=== PATIENT | female | born 1940 | race Caucasian/White ===

== ENCOUNTER 2020-03-26 08:09 | Outpatient (REF) | payer MEDICARE, SELFPAY ==
[2020-03-26 11:29] LABS: MANUAL DIFF FLAG NO
[2020-03-26 11:40] LABS: Basophils Percent Auto 0.5 % (0-2); Eosinophils Absolute Auto 0.2 X10*3/uL (0.0-0.4); Eosinophils Percent Auto 3.9 % (0-4); Hematocrit 38.6 % (37-47); Hemoglobin 12.8 g/dl (12.0-16.0); Imm Gran Abs Auto 0.02 X10*3/uL (0.00-0.03); Imm Gran Pct Auto 0.3 % (0.0-0.4); Lymphocytes Absolute Auto 2.6 X10*3/uL (1.2-4.9); Mean Corpuscular HGB Conc 33.2 g/dl (31.0-35.0); Mean Corpuscular Hemoglobin 29.2 pg (27.0-33.0); Mean Corpuscular Volume 87.9 fL (80-98); Mean Platelet Volume 9.4 fL (9.4-12.3); Monocytes Absolute Auto 0.5 X10*3/uL (0.1-1.2); Monocytes Percent Auto 7.2 % (2-11); Neutrophils Absolute Auto 2.9 X10*3/uL (2.0-8.3); Neutrophils Percent Auto 47.1 % (45-73); Platelet Count 324 X10*3/uL (160-400); Red Blood Count 4.39 X10*6/uL (4.20-5.50); White Blood Count 6.2 X10*3/uL (4.8-10.8)
[2020-03-26 12:01] LABS: Glucose Urine UA NEG (NEG); Leukocyte Esterase Urine 1+ (NEG); Nitrite Urine NEG (NEG); Specific Gravity - Urine 1.015 (1.005-1.025); Urine Blood NEG (NEG); Urine Ketones NEG (NEG); Urine Protein NEG (NEG-TRACE)
[2020-03-26 12:04] LABS: Appearance Urine CLEAR; Color Urine YELLOW
[2020-03-26 12:12] LABS: TSH reflex Free T4 1.43 mIU/mL (0.32-4.0)
[2020-03-26 12:13] LABS: Alanine Aminotransferase 19 U/L (0-31); Albumin Level 4.1 g/dL (3.5-5.0); Alkaline Phosphatase 64 U/L (39-117); Anion Gap 11 (12-20); Aspartate Amino Transferase 21 U/L (5-31); Bilirubin Total 0.5 mg/dL (0.0-1.0); Blood Urea Nitrogen 27 mg/dL (9-16); Calcium 9.2 mg/dL (8.4-10.2); Carbon Dioxide 30 mmol/L (22-29); Chloride 100 mmol/L (96-108); Cholesterol 192 mg/dL; Estimated Glomerular Filt Rate 45; Glucose Fasting 90 mg/dL (60-99); HDL Cholesterol 54 mg/dL; LDL Cholesterol Calculated 121 mg/dl; Potassium 4.1 mmol/l (3.3-5.1); Sodium 137 mmol/L (135-145); Total Protein 7.4 g/dL (6.5-8.0); Triglycerides 86 mg/dL
[2020-03-26 12:18] LABS: Squamous Epithelial Cell Urine 1+ /LPF
== END 2020-03-26 08:10 | disposition home or self-care (01) ==
LOC: HO.HMGCLDS 08:09
PROVIDERS: PCP Internal Medicine; Visit Provider Internal Medicine
DX: E78.00 Pure hypercholesterolemia, unspecified (principal); I10 Essential (primary) hypertension; E66.3 Overweight
CPT/HCPCS: 36415; 80053; 80061; 81001; 81003; 84443; 85025; 87086

== ENCOUNTER 2021-06-03 14:49 | Outpatient (REF) | payer MEDICARE, SELFPAY ==
[2021-06-03 15:02] LABS: MANUAL DIFF FLAG NO
[2021-06-03 15:16] LABS: Basophils Percent Auto 0.4 % (0-2); Eosinophils Absolute Auto 0.1 X10*3/uL (0.0-0.4); Eosinophils Percent Auto 1.5 % (0-4); Hematocrit 38.4 % (37.0-47.0); Hemoglobin 12.6 g/dl (12.0-16.0); Imm Gran Abs Auto 0.02 X10*3/uL (0.00-0.03); Imm Gran Pct Auto 0.3 % (0.0-0.4); Lymphocytes Absolute Auto 2.2 X10*3/uL (1.2-4.9); Lymphocytes Percent Auto 29.5 % (20-40); Mean Corpuscular HGB Conc 32.8 g/dl (31.0-35.0); Mean Corpuscular Hemoglobin 29.1 pg (27.0-33.0); Mean Corpuscular Volume 88.7 fL (80.0-98.0); Mean Platelet Volume 9.4 fL (9.4-12.3); Monocytes Absolute Auto 0.5 X10*3/uL (0.1-1.2); Monocytes Percent Auto 6.4 % (2-11); Neutrophils Absolute Auto 4.6 x10*3/uL (2.0-8.3); Neutrophils Percent Auto 61.9 % (45-73); Platelet Count 302 X10*3/uL (160-400); Red Blood Count 4.33 X10*6/uL (4.20-5.50); Red Cell Distribution Width 14.2 % (11.0-16.0); White Blood Count 7.5 X10*3/uL (4.8-10.8)
[2021-06-03 15:52] LABS: T4 Thyroxine 8.2 ug/dL (4.5-12.0); Thyroid Stimulating Hormone 1.02 uIU/mL (0.32-4.0)
[2021-06-03 16:09] LABS: Folate > 20.0 ng/mL (> or = 4.0); Vitamin B12 439 pg/mL (200-900)
== END 2021-06-03 14:50 | disposition home or self-care (01) ==
LOC: HO.LAB 14:49
PROVIDERS: PCP Internal Medicine; Visit Provider Psychiatry & Neurology Neurology
DX: G31.84 Mild cognitive impairment of uncertain or unknown etiology (principal)
CPT/HCPCS: 36415; 82607; 82746; 84436; 84443; 85025

== ENCOUNTER 2021-07-15 11:00 | Outpatient (REF) | payer MEDICARE, SELFPAY ==
--- NOTE | ~2021-07-15 | CT_ITS ---
EXAMINATION: CT HEAD WITHOUT CONTRAST CLINICAL INFORMATION: Mild cognitive impairment COMPARISON: None TECHNIQUE: Contiguous axial imaging was performed from the skull base to vertex without intravenous administration of contrast. This CT examination was performed using dose optimization techniques as appropriate, variously including the following: *Automated exposure control *Adjustment of mA and/or kV according to patient size (this includes techniques or standardized protocols for targeted exams where dose is matched to indication/reason for exam; i.e. extremities or head) *Use of iterative reconstruction technique DLP: 650 mGy-cm FINDINGS: There is no evidence of an extra-axial collection. There is no evidence of intra-axial or extra-axial hemorrhage. The ventricles and extra-axial CSF spaces are prominent suggestive of generalized atrophy. There is nonspecific periventricular white matter disease. There are small calcifications in the left periventricular white matter of the frontal lobe adjacent to the anterior horn of the left lateral ventricle. No mass, mass effect or infarct is seen. Review of bone windows is normal. Visualized paranasal sinuses, mastoid air cells and middle ears are clear. CT/CT head/brain wo con IMPRESSION: Mild generalized atrophy and nonspecific periventricular white matter disease. Small periventricular white matter calcifications in the left frontal lobe adjacent to the anterior horn of the left lateral ventricle.
== END 2021-07-15 11:01 | disposition home or self-care (01) ==
LOC: HO.CT 11:00
PROVIDERS: PCP Internal Medicine; Visit Provider Psychiatry & Neurology Neurology
DX: G31.84 Mild cognitive impairment of uncertain or unknown etiology (principal)
CPT/HCPCS: 70450

== ENCOUNTER 2021-09-20 08:24 | Outpatient (REF) | payer MEDICARE, SELFPAY ==
--- NOTE | ~2021-09-20 | XR_ITS ---
EXAMINATION: XR KNEE, LEFT CLINICAL INFORMATION: Pain COMPARISON: None TECHNIQUE: Four views of the left knee. FINDINGS: No fracture or dislocation. Tiny suprapatellar joint effusion. Severe narrowing of the medial joint space height. Small tricompartmental marginal osteophytes. No focal soft tissue swelling of the anterior knee. XR/XR knee LT 4V IMPRESSION: Moderate degenerative changes involving the medial compartment of the knee.
[2021-09-20 11:13] LABS: Appearance Urine CLEAR; Glucose Urine UA NEG (NEG); Leukocyte Esterase Urine NEG (NEG); Nitrite Urine NEG (NEG); Specific Gravity - Urine <= 1.005 (1.005-1.025); Urine Blood NEG (NEG); Urine Ketones NEG (NEG); Urine Protein NEG (NEG-TRACE)
[2021-09-20 11:15] LABS: MANUAL DIFF FLAG NO
[2021-09-20 11:25] LABS: Basophils Percent Auto 0.6 % (0-2); Eosinophils Absolute Auto 0.1 X10*3/uL (0.0-0.4); Eosinophils Percent Auto 2.2 % (0-4); Hematocrit 38.3 % (37.0-47.0); Hemoglobin 12.6 g/dl (12.0-16.0); Imm Gran Abs Auto 0.01 X10*3/uL (0.00-0.03); Imm Gran Pct Auto 0.2 % (0.0-0.4); Lymphocytes Absolute Auto 2.1 X10*3/uL (1.2-4.9); Lymphocytes Percent Auto 42.1 % (20-40); Mean Corpuscular HGB Conc 32.9 g/dl (31.0-35.0); Mean Corpuscular Volume 88.2 fL (80.0-98.0); Mean Platelet Volume 9.7 fL (9.4-12.3); Monocytes Absolute Auto 0.4 X10*3/uL (0.1-1.2); Monocytes Percent Auto 7.7 % (2-11); Neutrophils Absolute Auto 2.4 x10*3/uL (2.0-8.3); Neutrophils Percent Auto 47.2 % (45-73); Platelet Count 298 X10*3/uL (160-400); Red Blood Count 4.34 X10*6/uL (4.20-5.50); Red Cell Distribution Width 13.7 % (11.0-16.0)
[2021-09-20 11:45] LABS: Alanine Aminotransferase 13 U/L (0-31); Albumin Level 3.9 g/dL (3.5-5.0); Alkaline Phosphatase 66 U/L (39-117); Anion Gap 11 (12-20); Aspartate Amino Transferase 16 U/L (5-31); Bilirubin Total 0.4 mg/dL (0.0-1.0); Blood Urea Nitrogen 22 mg/dL (9-16); Calcium 9.8 mg/dL (8.4-10.2); Carbon Dioxide 29 mmol/L (22-29); Chloride 103 mmol/L (96-108); Cholesterol 210 mg/dL; Estimated Glomerular Filt Rate 50; Glucose Fasting 98 mg/dL (60-99); HDL Cholesterol 53 mg/dL; LDL Cholesterol Calculated 141 mg/dl; Sodium 139 mmol/L (135-145); Total Protein 7.4 g/dL (6.5-8.0); Triglycerides 82 mg/dL
[2021-09-20 11:52] LABS: TSH reflex Free T4 1.21 uIU/mL (0.32-4.0); Vitamin D 25-OH Total 52.5 ng/mL (>30)
[2021-09-20 12:06] LABS: Folate 11.8 ng/mL (> or = 4.0); Vitamin B12 261 pg/mL (200-900)
== END 2021-09-20 08:25 | disposition home or self-care (01) ==
LOC: HO.HMGCLDS 08:24
PROVIDERS: Visit Provider Internal Medicine
DX: M25.562 Pain in left knee (principal); E78.00 Pure hypercholesterolemia, unspecified; E55.9 Vitamin D deficiency, unspecified; E53.8 Deficiency of other specified B group vitamins; I10 Essential (primary) hypertension
CPT/HCPCS: 36415; 73564; 80053; 80061; 81003; 82306; 82607; 82746; 84443; 85025

== ENCOUNTER 2021-10-28 07:29 | Outpatient (REF) | payer MEDICARE, SELFPAY ==
--- NOTE | ~2021-10-28 | XR_ITS ---
EXAMINATION: XR KNEE AP STANDING CLINICAL INFORMATION: Bilateral knee pain. COMPARISON: None TECHNIQUE: AP bilateral standing view of the knees was obtained. FINDINGS: There is loss, severe medial and moderate lateral compartment joint space both knees. There is no periarticular spurring or bony erosive changes. The soft tissues are normal. No acute fracture or dislocation seen. XR/XR knee standing BI IMPRESSION: Severe medial and moderate lateral compartment degenerative arthritic changes both knees.
== END 2021-10-28 07:30 | disposition home or self-care (01) ==
LOC: HO.HOSX 07:29
PROVIDERS: Visit Provider Physician Assistant
DX: M17.12 Unilateral primary osteoarthritis, left knee (principal)
CPT/HCPCS: 20610; 73565; 99202; J1040

== ENCOUNTER 2021-11-03 15:09 | Emergency (ER) | payer MEDICARE, SELFPAY ==
[2021-11-03 15:26] VITALS: BP 101/44; BP 114/58; PULSE 108; PULSE 98; RESP 18; TEMP 36.5; O2SAT 98; BMI 28.3
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
[2021-11-03 16:34] VITALS: BP 115/63; PULSE 86; RESP 16; O2SAT 94
== END 2021-11-03 16:35 | disposition home or self-care (01) ==
PROVIDERS: Emergency Provider Emergency Medicine; PCP Internal Medicine
DX: Z04.1 Encounter for examination and observation following transport accident (principal); R41.3 Other amnesia
CPT/HCPCS: 99282; 99284

== ENCOUNTER → 2022-04-07 08:27 | Outpatient (BNVA) | payer MEDICARE, SELFPAY | PROVIDERS: PCP Internal Medicine; Visit Provider Physician Assistant | DX: M17.12 Unilateral primary osteoarthritis, left knee (principal); M17.11 Unilateral primary osteoarthritis, right knee | CPT/HCPCS: 20610; 99212; J1040 ==

== ENCOUNTER 2022-09-10 09:05 | Outpatient (REF) | payer MEDICARE, SELFPAY ==
[2022-09-10 11:14] LABS: MANUAL DIFF FLAG NO
[2022-09-10 11:33] LABS: Basophils Percent Auto 0.7 % (0-2); Eosinophils Absolute Auto 0.2 X10*3/uL (0.0-0.4); Hematocrit 36.7 % (37.0-47.0); Hemoglobin 11.9 g/dl (12.0-16.0); Imm Gran Abs Auto 0.01 X10*3/uL (0.00-0.03); Imm Gran Pct Auto 0.2 % (0.0-0.4); Lymphocytes Absolute Auto 2.1 X10*3/uL (1.2-4.9); Lymphocytes Percent Auto 36.9 % (20-40); Mean Corpuscular HGB Conc 32.4 g/dl (31.0-35.0); Mean Corpuscular Hemoglobin 28.7 pg (27.0-33.0); Mean Corpuscular Volume 88.6 fL (80.0-98.0); Mean Platelet Volume 9.7 fL (9.4-12.3); Monocytes Absolute Auto 0.4 X10*3/uL (0.1-1.2); Monocytes Percent Auto 7.5 % (2-11); Neutrophils Absolute Auto 2.9 x10*3/uL (2.0-8.3); Neutrophils Percent Auto 51.7 % (45-73); Platelet Count 262 X10*3/uL (160-400); Red Blood Count 4.14 X10*6/uL (4.20-5.50); White Blood Count 5.6 X10*3/uL (4.8-10.8)
[2022-09-10 12:08] LABS: Alanine Aminotransferase 13 U/L (0-31); Albumin Level 3.9 g/dL (3.5-5.0); Alkaline Phosphatase 64 U/L (39-117); Anion Gap 10 (12-20); Aspartate Amino Transferase 17 U/L (5-31); Bilirubin Total 0.6 mg/dL (0.0-1.0); Blood Urea Nitrogen 21 mg/dL (9-16); Calcium 9.7 mg/dL (8.4-10.2); Carbon Dioxide 29 mmol/L (22-29); Chloride 105 mmol/L (96-108); Cholesterol 205 mg/dL; Estimated Glomerular Filt Rate 59; Glucose Fasting 88 mg/dL (60-99); HDL Cholesterol 53 mg/dL; LDL Cholesterol Calculated 138 mg/dl; Potassium 4.1 mmol/L (3.3-5.1); Sodium 140 mmol/L (135-145); Total Protein 7.1 g/dL (6.5-8.0); Triglycerides 70 mg/dL
[2022-09-10 12:42] LABS: Folate 15.8 ng/mL (> or = 4.0); TSH reflex Free T4 1.69 uIU/mL (0.32-4.0); Vitamin B12 366 pg/mL (200-900); Vitamin D 25-OH Total 45.9 ng/mL (>30)
== END 2022-09-10 09:06 | disposition home or self-care (01) ==
LOC: HO.HMGCLDS 09:05
PROVIDERS: PCP Internal Medicine; Visit Provider Internal Medicine
DX: E78.00 Pure hypercholesterolemia, unspecified (principal); E55.9 Vitamin D deficiency, unspecified; E53.8 Deficiency of other specified B group vitamins; I10 Essential (primary) hypertension
CPT/HCPCS: 36415; 80053; 80061; 82306; 82607; 82746; 84443; 85025

== ENCOUNTER 2022-09-17 14:51 | Outpatient (REF) | payer MEDICARE, SELFPAY ==
[2022-09-17 17:00] LABS: Appearance Urine Clear; Color Urine Yellow; Glucose Urine UA Negative (Negative); Leukocyte Esterase Urine Small (1+) (Negative); Nitrite Urine Negative (Negative); UMIC TRIGGER UACC YES; Urine Blood Negative (Negative); Urine Ketones Negative (Negative); Urine Protein Negative (Neg-Trace)
[2022-09-17 17:16] LABS: Bacteria Urine None Seen (None Seen); Hyaline Casts Urine 0-2 /LPF (0-2); Squamous Epithelial Cell Urine 0-2 /HPF (0-2); UACC Culture Trigger YES; WBC Urine 0-5 /HPF (0-5)
[2022-09-17 17:18] LABS: RBC Urine 0-2 /HPF (0-2)
== END 2022-09-17 14:52 | disposition home or self-care (01) ==
LOC: HO.HMGCLNP 14:51
PROVIDERS: PCP Internal Medicine; Visit Provider Internal Medicine
DX: R30.0 Dysuria (principal)
CPT/HCPCS: 81001; 87086

== ENCOUNTER 2023-01-07 09:12 | Outpatient (REF) | payer MEDICARE, SELFPAY ==
[2023-01-07 11:43] LABS: MANUAL DIFF FLAG NO
[2023-01-07 11:45] LABS: Appearance Urine Clear; Color Urine Yellow; Glucose Urine UA Negative (Negative); Leukocyte Esterase Urine Moderate (2+) (Negative); Nitrite Urine Negative (Negative); PH 5.5 (5.0-9.0); Specific Gravity - Urine 1.025 (1.005-1.025); UMIC TRIGGER UACC YES; Urine Blood Small (1+) (Negative); Urine Ketones Negative (Negative); Urine Protein Negative (Neg-Trace)
[2023-01-07 11:52] LABS: Basophils Percent Auto 0.5 % (0-2); Eosinophils Absolute Auto 0.2 X10*3/uL (0.0-0.4); Eosinophils Percent Auto 2.6 % (0-4); Hematocrit 38.6 % (37.0-47.0); Hemoglobin 12.6 g/dl (12.0-16.0); Imm Gran Abs Auto 0.01 X10*3/uL (0.00-0.03); Imm Gran Pct Auto 0.2 % (0.0-0.4); Lymphocytes Absolute Auto 2.2 X10*3/uL (1.2-4.9); Lymphocytes Percent Auto 36.6 % (20-40); Mean Corpuscular HGB Conc 32.6 g/dl (31.0-35.0); Mean Corpuscular Hemoglobin 28.3 pg (27.0-33.0); Mean Corpuscular Volume 86.7 fL (80.0-98.0); Mean Platelet Volume 10.8 fL (9.4-12.3); Monocytes Absolute Auto 0.4 X10*3/uL (0.1-1.2); Monocytes Percent Auto 6.9 % (2-11); Neutrophils Absolute Auto 3.3 x10*3/uL (2.0-8.3); Neutrophils Percent Auto 53.2 % (45-73); Platelet Count 235 X10*3/uL (160-400); Red Blood Count 4.45 X10*6/uL (4.20-5.50); Red Cell Distribution Width 14.2 % (11.0-16.0); White Blood Count 6.1 X10*3/uL (4.8-10.8)
[2023-01-07 12:08] LABS: Bacteria Urine Trace (None Seen); Hyaline Casts Urine 0-2 /LPF (0-2); RBC Urine 0-2 /HPF (0-2); UACC Culture Trigger YES
[2023-01-07 12:16] LABS: Alanine Aminotransferase 13 U/L (0-31); Albumin Level 4.1 g/dL (3.5-5.0); Alkaline Phosphatase 64 U/L (39-117); Anion Gap 11 (12-20); Aspartate Amino Transferase 19 U/L (5-31); Bilirubin Total 0.5 mg/dL (0.0-1.0); Blood Urea Nitrogen 16 mg/dL (9-16); Calcium 10.1 mg/dL (8.4-10.2); Carbon Dioxide 28 mmol/L (22-29); Chloride 106 mmol/L (96-108); Cholesterol 196 mg/dL (<200); Estimated Glomerular Filt Rate > 60; Glucose Fasting 96 mg/dL (60-99); HDL Cholesterol 57 mg/dL (>40); LDL Cholesterol Calculated 127 mg/dL (<100); Potassium 4.1 mmol/L (3.3-5.1); Sodium 141 mmol/L (135-145); Total Protein 7.7 g/dL (6.5-8.0); Triglycerides 60 mg/dL (<150)
[2023-01-07 12:24] LABS: TSH reflex Free T4 1.69 uIU/mL (0.32-4.0)
[2023-01-07 12:44] LABS: Folate 12.6 ng/mL (> or = 4.0); Vitamin B12 592 pg/mL (200-900)
== END 2023-01-07 09:13 | disposition home or self-care (01) ==
LOC: HO.HMGCLDS 09:12
PROVIDERS: PCP Internal Medicine; Visit Provider Internal Medicine
DX: E55.9 Vitamin D deficiency, unspecified (principal); E53.8 Deficiency of other specified B group vitamins; I10 Essential (primary) hypertension; E78.00 Pure hypercholesterolemia, unspecified; R30.0 Dysuria
CPT/HCPCS: 36415; 80053; 80061; 81001; 82306; 82607; 82746; 84443; 85025; 87086

== ENCOUNTER 2023-01-16 08:37 | Outpatient (AMB) | payer MEDICARE, SELFPAY ==
[2023-01-16 08:43] VITALS: BP 116/80; PULSE 101; O2SAT 98; BMI 24.0
--- NOTE | 2023-01-16 08:43 | MHC.PC.OV ---
Vital Signs 01/16/23 08:43 Height 5 ft 2 in Weight 131 lb BMI 24.0 BP 116/80 Blood Pressure Location Lt brachial Position Sitting Pulse 101 H Pulse Source Pulse Oximeter Pulse Oximetry (%) 98 Oxygen Delivery Method Room Air Intake Visit Reasons: Annual Physical Community Health Counselor Required: No Accompanied by: Son Allergies No Known Allergies Allergy (Verified 01/16/23 09:13) Medication List - Last Reconciled 01/16/23 by Diaz Flores MD No Known Home Meds Tobacco use date assessed: 01/16/23 Fall risk assessment: No Falls in past year Last assessed Fall Risk: 01/16/23 Dental Screening Dental Screen Date: 01/16/23 Did you have a dental visit in the last 12 months?: Yes Did you have a dental problem in the last 6 months where you did not have access to dental care?: No Was dental information given to patient?: Patient has dentist HPI Annual Physical HPI Details Patient comes in today for her annual physical examination States that she feels okay although she appears to still has some baseline confusion, which her son states has been about the same and is mostly unchanged - states that she normally has some good days and bad days Patient denies any headaches or dizziness and feels that she is doing well overall She denies any chest pains, no SOB No nausea/vomiting, no abdominal pain No change in bowel habits noted She denies any acute urinary symptoms States that she does have a rash on her left arm at the antecubital fossa area that her son noticed a couple of days ago Patient states that the rash is slightly itchy but does not hurt and states that she has no idea how the rash got there Her son adds that patient has been complaining of her knees hurting and feeling stiff often over the past few weeks, especially when she is trying to get up from sitting in a chair She has consistently declined referrals for her to get a screening colonoscopy in the past and at her current age, she no longer needs to continue with routine screenings for colon, breast and cervical cancer She had her follow up labs done last week - to discuss her results [facility] Medical History Primary osteoarthritis of knees, 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 Memory impairment Overweight (BMI 25.0-29.9) Osteoarthritis of right knee Pure hypercholesterolemia Benign essential hypertension Surgical History No pertinent past surgical history Family History Unknown Family history non-contributory Social History Housing: House Alcohol intake: current Alcohol intake frequency: a few times a month Alcohol type: wine Patient Tobacco Use Status: Never used Tobacco e-Cigarette/Vaping Use: Never Used Second Hand Smoke Exposure: No service: No Current occupational status: retired Cognitive needs: No Hearing needs: No Vision needs: No Questionnaire PHQ-9 Over the last 2 weeks, how often have you been bothered by any of the following problems? 1. Little interest or pleasure in doing things: not at all 2. Feeling down, depressed, or hopeless: not at all 3. Trouble falling or staying asleep, or sleeping too much: nearly every day 4. Feeling tired or having little energy: several days 5. Poor appetite or overeating: not at all 6. Feeling bad about yourself - or that you are a failure or have let yourself or your family down: not at all 7. Trouble concentrating on things, such as reading the newspaper or watching television: not at all 8. Moving or speaking so slowly that other people could have noticed. Or the opposite - being so fidgety or restless that you have been moving around a lot more than usual: more than half the days 9. Thoughts that you would be better off or of hurting yourself in some way: not at all Total score: 6 Depression Screening Interpretation: Positive Depression Screening Follow-up: Existing condition and Declines treatment 06351 - PHQ-9 Billing: Yes Source: Developed by Drs. Guido Huston, Janneth Richardson, Librado Graf and colleagues, with an educational jayna from [employer]. Thrive Questionnaire Date Thrive assessed: 01/16/23 I am a: Patient What is your living situation today?: I have a steady place to live Within the past 12 months, did the food you bought not last and you didn't have the money to get more?: Never true Within the past 12 months, did you worry whether your food would run out before you got money to buy more?: Never true Do you have trouble paying for medicines?: No Do you have trouble getting transportation to medical appointments?: No Do you have trouble paying your heating and electricity bill?: No Do you have trouble taking care of your child, family member or friend?: No Do you have trouble with day-to-day activities such as bathing, preparing meals, shopping, managing finances, etc.?: No Are you currently unemployed and looking for a job?: No Are you interested in more education?: No Currently or been in a relationship where the following occur: no concerns reported AUDIT C Alcohol Use Questionnaire (AUDIT-C) 1. How often do you have a drink containing alcohol?: Never 2. How many drinks containing alcohol do you have on a typical day when you are drinking?: 1 or 2 3. How often do you have six or more drinks on one occasion?: Never Total Score: 0 Score Reviewed/Action Taken: Yes DAMARI-7 AMB Questionnaire DAMARI-7 Date DAMARI - 7 assessed: 01/16/23 Feeling nervous, anxious, or on edge: 0 = Not at all Not being able to stop or control worryin = Several days Worrying too much about different things: 1 = Several days Trouble relaxin = Several days Being so restless that it is hard to sit still: 1 = Several days Becoming easily annoyed or irritable: 1 = Several days Feeling afraid as if something awful might happen: 1 = Several days Total DAMARI-7 score (0-4 normal; 5-9 mild; 10-14 moderate; 15-21 severe): 6 Source: Developed by Drs. Guido Huston, Janneth Richardson, Librado Graf and colleagues, with an educational jayna from [employer]. Review of Systems Const Denies chills, Denies fatigue, Denies fever(s), Denies headache(s) and Denies malaise Eyes Denies blurry vision, Denies irritation and Denies itchy eyes ENT Denies dysphagia, Denies dizziness, Denies otalgia, Denies headache(s), Denies neck pain, Denies odynophagia and Denies sore throat Card Denies chest pain, Denies rapid heart rate, Denies irregular heart rhythm, Denies palpitations and Denies dyspnea Resp Denies cough, Denies dyspnea and Denies wheezing GI Denies abdominal pain, Denies constipation, Denies dysphagia, Denies heartburn, Denies diarrhea, Denies nausea, Denies odynophagia and Denies vomiting Denies hematuria, Denies urinary frequency, Denies dysuria, Denies urinary incontinence and Denies urinary urgency Musc Denies back pain, Reports arthralgias (recurrent, in both knees often lately), Denies joint swelling, Denies muscle weakness, Denies neck pain and Reports stiffness (in both knees, on and off) Skin/Breast Denies breast pain, Denies breast mass, Denies change in pigmentation, Denies lesions, Reports rash (over the left antecubital fossa area on the left arm) and Denies unusual bruising Neuro Reports confusion (off and on, per son - states that this is her baseline level nowadays), Denies dizziness, Denies headache(s), Reports memory loss (per son) and Denies paresthesias Psych Denies anxiety, Reports confusion (off and on, per son - states that this is her baseline level nowadays), Denies depression and Reports memory loss (per son) Endo Denies fatigue and Denies palpitations Jay/Lymph Denies easy bruising Aller/Immun Denies itchy eyes and Denies wheezing Physical exam (Primary Care) Vital Signs: Last Vital Signs Pulse 101 H 01/16/23 08:43 BP 116/80 01/16/23 08:43 Pulse Ox 98 01/16/23 08:43 Oxygen Delivery Method Room Air 01/16/23 08:43 BMI result Body Mass Index 24.0 Tobacco/Smoking Status: Tobacco use Status Tobacco use date assessed 01/16/23 01/16/23 08:49 Patient Tobacco Use Status Never used Tobacco 01/16/23 08:49 e-Cigarette/Vaping Use Never Used 01/16/23 08:49 PHQ-9: PHQ-9 Score PHQ-9: Total score 6 01/16/23 08:49 Depression Screening Interpretation: Positive Depression Screening Follow-up: Existing condition and Declines treatment Thrive Assessment: Date of Thrive Assessment Date Thrive assessed 01/16/23 01/16/23 08:49 Currently or been in a relationship where the following occur: no concerns reported Const General: no acute distress and confusion (off and on, per son - states that this is her baseline level nowadays) Orientation/consciousness: confusion (off and on, per son - states that this is her baseline level nowadays) [facility] [place] Head: Yes normocephalic and Yes atraumatic Ears: TM's normal bilaterally and EAC's normal General nose exam: No nasal discharge present Face and sinus: Yes normal facial exam and Yes sinuses nontender Teeth and gingiva: dentition normal Throat: Yes posterior oropharynx normal and Yes tonsils normal (no TP congestion) Eyes Eyelids: Yes eyelids normal Conjunctivae: conjunctivae normal Pupils: Equal, round and reactive pupils present EOM: EOMs intact bilaterally Neck Neck: Yes no lymphadenopathy and Yes supple Thyroid: Thyroid normal Resp Auscultation: clear to auscultation bilaterally, no rales and no wheezes Cardio Rate: regular rate Rhythm: regular rhythm Heart sounds: Murmur heart sound present systolic soft, II/ and at the left sternal border GI Palpation (GI): Soft to palpation, nontender and No hepatosplenomegaly present Auscultation: normal bowel sounds General: Yes no CVA tenderness Back/Spine/Pelvis Back: no CVA tenderness Thoracic/Lumbar Spine: thoracic and lumbar spine normal to inspection Skin Lesions: no lesions Rashes: no rashes Neuro General: confusion (off and on, per son - states that this is her baseline level nowadays) Cranial nerves: Yes Equal, round and reactive pupils present Cognition (Neuro): normal cognition Gait exam (Neuro): Normal gait present Extrem General: Yes no clubbing, cyanosis or edema Right lower extremity: knee Details: tenderness (anterolaterally) and normal ROM; no swelling Left lower extremity: knee Details: tenderness (minimal, over the anterolateral aspect of the left knee) and normal ROM; no swelling Assessment and Plan Assessment & Plan (1) Annual physical exam: Code(s): Z00.00 - Encounter for general adult medical examination without abnormal findings Plan: Results of her labs done last week reviewed and discussed with patient and her son She has declined referrals for a screening colonoscopy in the past and has never had one done At her current age, she also no longer needs to continue with routine breast and cervical cancer screening She has also declined to get flu vaccinations in the past and continues to decline getting a flu shot or other vaccinations, including pneumonia, shingles and COVID vaccines (2) Benign essential hypertension: Code(s): I10 - Essential (primary) hypertension Plan: Reinforced low sodium diet - goal is systolic BP of at least 140 to 150 mm or less Patient used to take Lisinopril-HCT 20-12.5 mg QD for her blood pressure but self-discontinued taking her medication at some point over the past few years as she did not feel that she needs it Her BP was fairly well-controlled at her last visit and appears controlled again at today's visit and we will continue to hold off on starting her back on any Rx for her blood pressure at this time (3) Pure hypercholesterolemia: Code(s): E78.00 - Pure hypercholesterolemia, unspecified Plan: Have advised patient and her son that her cholesterol levels also appear to have improved further from her previous numbers on her labs done last week and are now in the normal range Reinforced low cholesterol diet Patient used to take OTC Red Yeast Rice supplements regularly as she has steadfastly declined offer to start her on cholesterol-lowering Rx in the past but has not been taking it lately and it appears that her cholesterol levels are now under control with just diet modification alone Will recheck her labs and fasting lipids in 6 months for follow up (4) Mild cognitive impairment with memory loss: Code(s): G31.84 - Mild cognitive impairment of uncertain or unknown etiology Plan: Patient is again encouraged to continue to stay active physically, mentally and socially; advised to exercise regularly, eat healthy and to get plenty of sleep and rest at night Work ups done in the past, including a head CT, EEG and labs have all came back negative Was seen by Dr. Reyes last year but patient does not want to go back to him as she felt that he did not really do anything - have advised that he did what he had to and needed to and perhaps just did not explain things well enough for her She was also started on Donepezil 5 mg QD but patient stopped taking it as she did not feel that it was helping and does not want to take it despite our previous attempts to convince her to do so Patient agreed to go to [facility] for a second opinion but as we have not received any reports from [facility], are not sure if she ever was seen by them (5) Primary osteoarthritis of knees, bilateral: Code(s): M17.0 - Bilateral primary osteoarthritis of knee Plan: She and her son are reminded that x-rays of her knees done last year revealed (+) severe tricompartmental arthritis in both knees Recalls experiencing (+) significant pain relief in her knees for a few months after receiving a cortisone injection into her knees back in October 2021 Advised that she can follow up with orthopedics as needed for her knees but in the meantime, can take some OTC Tylenol PRN for pain (6) Rash: Code(s): R21 - Rash and other nonspecific skin eruption Plan: Is advised that the rash on her left arm appears to be some form of eczema Will start her for now on Triamcinolone 0.5% cream to apply to the rash on her left arm TID PRN Plan Follow up in 6 months (August 2023) Orders: Orders Lipid Panel 6 Months E78.00 - Pure hypercholesterolemia, unspecified Complete Blood Count Auto Diff 6 Months I10 - Essential (primary) hypertension Vitamin B12 and Folate 6 Months E53.8 - Deficiency of other specified B group vitamins Comprehensive [place]. Panel Fast 6 Months E78.00 - Pure hypercholesterolemia, unspecified UA CC w/rflx Micro + Cult 6 Months R30.0 - Dysuria Medications: New triamcinolone acetonide 0.5% 1 appl topical TID PRN 30 grams 0RF rash Coding Level of Care Code Est Pt Prev Care >65y(63211) Diagnoses Annual physical exam Z00.00 Benign essential hypertension I10 Pure hypercholesterolemia E78.00 Mild cognitive impairment with memory loss G31.84 Primary osteoarthritis of knees, bilateral M17.0 Rash R21
== END 2023-01-16 09:24 | disposition home or self-care (01) ==
PROVIDERS: PCP Internal Medicine; Visit Provider Internal Medicine
DX: Z00.00 Encounter for general adult medical examination without abnormal findings (principal); I10 Essential (primary) hypertension; E78.00 Pure hypercholesterolemia, unspecified; G31.84 Mild cognitive impairment of uncertain or unknown etiology; M17.0 Bilateral primary osteoarthritis of knee; R21 Rash and other nonspecific skin eruption
CPT/HCPCS: 99397

== ENCOUNTER 2023-06-23 15:18 | Outpatient (AMB) | payer MEDICARE, SELFPAY ==
[2023-06-23 15:19] VITALS: BP 126/84; PULSE 83; O2SAT 95; BMI 23.1
--- NOTE | 2023-06-23 15:19 | MHC.PC.OV ---
Vital Signs 06/23/23 15:19 Height 5 ft 2 in Weight 126 lb 2 oz BMI 23.1 BP 126/84 Blood Pressure Location Lt brachial Position Sitting Pulse 83 Pulse Source Pulse Oximeter Pulse Oximetry (%) 95 Oxygen Delivery Method Room Air Intake Visit Reasons: Discuss Assisted living Customer Relations Assistant Required: No Accompanied by: Self / Same As Patient Allergies No Known Allergies Allergy (Verified 06/23/23 15:50) Medication List - Last Reconciled 06/23/23 by Diaz Flores MD triamcinolone acetonide 0.5% 1 appl topical TID PRN Tobacco use date assessed: 06/23/23 Fall risk assessment: 1 Fall in past year Last assessed Fall Risk: 06/23/23 Dental Screening Dental Screen Date: 06/23/23 Did you have a dental visit in the last 12 months?: Yes Did you have a dental problem in the last 6 months where you did not have access to dental care?: No Was dental information given to patient?: Patient has dentist HPI Discuss Assisted living HPI Details Patient comes in today for her follow-up visit - is again accompanied by her daughter Her daughter states that patient is currently living at the [facility] and hs been there since early May 2023 States that they tried to keep the patient in her own place as long as they possibly could but it was getting to a point where it is no longer safe for patient to be on her own and they were forced to transfer her over to the assisted living facility, where patient states that she is doing okay They were advised recently that a letter of invocation on office letterhead is needed from her PCP certifying that patient's daughter is her HCP on record for documentation purposes Patient appears to have alternating bouts of confusion and lucidity during her visit today and at times tends to veer off topic during our conversation She also seems to be seeing some things on the floor that are not there and 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 that she apparently is seeing even though there is nothing evident on the floor Her daughter also states that she reportedly has a habit of roaming around in the middle of the night as she is up most of the night and sleeps often during the day Patient states that she feels okay and denies any headaches or dizziness Denies any chest pains, no shortness of breath No nausea/vomiting, no abdominal pain No change in bowel habits noted [facility] Medical History Primary osteoarthritis of knees, 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 Memory impairment Overweight (BMI 25.0-29.9) Osteoarthritis of right knee Pure hypercholesterolemia Benign essential hypertension Surgical History No pertinent past surgical history Family History Unknown Family history non-contributory Social History (Updated 06/24/23 @ 04:34 by Diaz Flores MD) Housing: Assisted Living Facility Alcohol intake: former Patient Tobacco Use Status: Never used Tobacco e-Cigarette/Vaping Use: Never Used Second Hand Smoke Exposure: No service: No Current occupational status: retired Cognitive needs: No Hearing needs: No Vision needs: No Questionnaire PHQ-9 Over the last 2 weeks, how often have you been bothered by any of the following problems? 1. Little interest or pleasure in doing things: not at all 2. Feeling down, depressed, or hopeless: not at all 3. Trouble falling or staying asleep, or sleeping too much: nearly every day 4. Feeling tired or having little energy: several days 5. Poor appetite or overeating: not at all 6. Feeling bad about yourself - or that you are a failure or have let yourself or your family down: not at all 7. Trouble concentrating on things, such as reading the newspaper or watching television: not at all 8. Moving or speaking so slowly that other people could have noticed. Or the opposite - being so fidgety or restless that you have been moving around a lot more than usual: more than half the days 9. Thoughts that you would be better off or of hurting yourself in some way: not at all Total score: 6 Depression Screening Interpretation: Positive Depression Screening Follow-up: Existing condition Depression Screening Done: Yes [id number] - PHQ-9 Billing: Yes Source: Developed by Drs. Guido Huston, Janneth Richardson, Librado Graf and colleagues, with an educational jayna from [employer]. Thrive Questionnaire Date Thrive assessed: 06/23/23 I am a: Patient What is your living situation today?: I have a steady place to live Within the past 12 months, did the food you bought not last and you didn't have the money to get more?: Never true Within the past 12 months, did you worry whether your food would run out before you got money to buy more?: Never true Do you have trouble paying for medicines?: No Do you have trouble getting transportation to medical appointments?: No Do you have trouble paying your heating and electricity bill?: No Do you have trouble taking care of your child, family member or friend?: No Do you have trouble with day-to-day activities such as bathing, preparing meals, shopping, managing finances, etc.?: No Are you currently unemployed and looking for a job?: No Are you interested in more education?: No Currently or been in a relationship where the following occur: no concerns reported THRIVE Score: 0 AUDIT C Alcohol Use Questionnaire (AUDIT-C) 1. How often do you have a drink containing alcohol?: Never 2. How many drinks containing alcohol do you have on a typical day when you are drinking?: 1 or 2 3. How often do you have six or more drinks on one occasion?: Never Total Score: 0 Score Reviewed/Action Taken: Yes DAMARI-7 AMB Questionnaire DAMARI-7 Date DAMARI - 7 assessed: 06/23/23 Feeling nervous, anxious, or on edge: 0 = Not at all Not being able to stop or control worryin = Several days Worrying too much about different things: 1 = Several days Trouble relaxin = Several days Being so restless that it is hard to sit still: 1 = Several days Becoming easily annoyed or irritable: 1 = Several days Feeling afraid as if something awful might happen: 1 = Several days Total DAMARI-7 score (0-4 normal; 5-9 mild; 10-14 moderate; 15-21 severe): 6 Source: Developed by Drs. Guido Huston, Janneth Richardson, Librado Graf and colleagues, with an educational jayna from [employer]. Review of Systems Const Details: Patient appears confused at times and information is obtained partly from and verified with her daughter Reports difficulty sleeping (sleeps often during the day now and is up most of the night), Denies fatigue, Denies fever(s) and Denies headache(s) ENT Denies dysphagia, Denies dizziness, Denies headache(s), Denies neck pain, Denies odynophagia and Denies sore throat Card Denies chest pain, Denies palpitations and Denies dyspnea Resp Denies cough and Denies dyspnea GI Denies abdominal pain, Denies constipation, Denies dysphagia, Denies heartburn, Denies diarrhea, Denies nausea, Denies odynophagia and Denies vomiting Denies difficulty voiding, Denies nocturia and Denies dysuria Musc Reports arthralgias (left knee, on and off), Denies joint swelling and Denies neck pain Neuro Reports confusion (on and off, per daughter), Denies dizziness, Denies headache(s) and Reports memory loss Psych Reports confusion (on and off, per daughter), Reports memory loss, Reports paranoia (at times - thinks someone is spying on her) and Reports visual hallucinations (at times) Endo Denies fatigue and Denies palpitations Physical exam (Primary Care) Vital Signs: Last Vital Signs Pulse 83 06/23/23 15:19 BP 126/84 06/23/23 15:19 Pulse Ox 95 06/23/23 15:19 Oxygen Delivery Method Room Air 06/23/23 15:19 BMI result Body Mass Index 23.1 Tobacco/Smoking Status: Tobacco use Status Tobacco use date assessed 06/23/23 06/23/23 15:24 Patient Tobacco Use Status Never used Tobacco 06/23/23 15:20 e-Cigarette/Vaping Use Never Used 06/23/23 15:20 PHQ-9: PHQ-9 Score PHQ-9: Total score 6 06/23/23 15:55 Depression Screening Interpretation: Positive Depression Screening Follow-up: Existing condition Thrive Assessment: Date of Thrive Assessment Date Thrive assessed 06/23/23 06/23/23 15:24 Currently or been in a relationship where the following occur: no concerns reported Advance Care Planning discussion: On file, no changes (HCP on file, MOLST form provided to complete and bring back (discussed)) Date of discussion: 06/23/23 Who was present: daughter, PCP, patient (although patient did not participate due to confusion) Forms completed: Health Care Proxy (on file) and MOLST (form provided to daughter to take home and complete with her brother) Time spent: 1-15 minutes, on File Const General: confusion (on and off, per daughter) Orientation/consciousness: confusion (on and off, per daughter) HENMT Ears: TM's normal bilaterally and EAC's normal Throat: Yes posterior oropharynx normal and Yes tonsils normal (no TP congestion) Neck Neck: Yes no lymphadenopathy and Yes supple Thyroid: Thyroid normal Resp Auscultation: clear to auscultation bilaterally, no rales and no wheezes Cardio Rate: regular rate Rhythm: regular rhythm Heart sounds: no murmurs GI Palpation (GI): Soft to palpation and nontender Auscultation: normal bowel sounds General: Yes no CVA tenderness Back/Spine/Pelvis Back: no CVA tenderness Skin Rashes: no rashes Neuro General: confusion (on and off, per daughter) Extrem General: Yes no clubbing, cyanosis or edema Right lower extremity: knee Details: tenderness (anterolaterally) and normal ROM; no swelling Left lower extremity: knee Details: tenderness (minimal, over the anterolateral aspect of the left knee) and normal ROM; no swelling Psych Speech and movement: Normal speech and movement present Affect: normal affect Thought process: Flight of ideas present Thought content: Hallucination(s) present (on and off) visual Assessment and Plan Assessment & Plan (1) Mild cognitive impairment with memory loss: Code(s): G31.84 - Mild cognitive impairment of uncertain or unknown etiology Plan: Was diagnosed by neurology back in 11/2021 although this appears to have progressed and patient is now residing in assisted living as her children does not feel that it is safe for her to be living on her own anymore Work ups done in the past, including a head CT, EEG and labs have all came back negative She was started on Donepezil 5 mg QD back in 2021 but patient stopped taking it as she did not feel that it was helping and does not want to take it despite attempts to convince her to do so (2) Benign essential hypertension: Code(s): I10 - Essential (primary) hypertension Plan: Reinforced low sodium diet - goal is systolic BP of at least 140 to 150 mm or less Patient used to take Lisinopril-HCT 20-12.5 mg QD for her blood pressure but self-discontinued taking her medication at some point over the past few years as she did not feel that she needs it Her BP appears fairly well-controlled without any medications so far (3) Pure hypercholesterolemia: Code(s): E78.00 - Pure hypercholesterolemia, unspecified Plan: Reinforced low cholesterol diet Patient used to take OTC Red Yeast Rice supplements regularly as she has continually declined to take any cholesterol-lowering Rx in the past but she is now just on diet modification alone (4) Primary osteoarthritis of knees, bilateral: Code(s): M17.0 - Bilateral primary osteoarthritis of knee Plan: X-rays of her knees done a couple of years ago revealed (+) severe tricompartmental arthritis in both knees Recalls experiencing (+) significant pain relief in her knees for a few months after receiving a cortisone injection into her knees back in October 2021 Advised that she can follow up with orthopedics as needed for her knees; can take some OTC Tylenol PRN for pain in the meantime (5) Rash: Code(s): R21 - Rash and other nonspecific skin eruption Plan: Continue Triamcinolone 0.5% cream to apply to the rash on her left arm TID PRN Plan Follow up as scheduled in August 2023 Coding Level of Care Code Est Pt Level 3 (44269) Diagnoses Mild cognitive impairment with memory loss G31.84 Benign essential hypertension I10 Pure hypercholesterolemia E78.00 Primary osteoarthritis of knees, bilateral M17.0 Rash R21 Additional Codes Vital Signs *Quality* - Time spent: 1-15 minutes, on File ([id number]) Vital Signs *Quality* - Advance Care Planning discussion: On file, no changes ([id number])
== END 2023-06-23 16:06 | disposition home or self-care (01) ==
PROVIDERS: PCP Internal Medicine; Visit Provider Internal Medicine
DX: G31.84 Mild cognitive impairment of uncertain or unknown etiology (principal); I10 Essential (primary) hypertension; E78.00 Pure hypercholesterolemia, unspecified; M17.0 Bilateral primary osteoarthritis of knee; R21 Rash and other nonspecific skin eruption; Z00.00 Encounter for general adult medical examination without abnormal findings
CPT/HCPCS: 1123F; 99213

== ENCOUNTER 2023-07-04 08:22 | Inpatient (IN) | payer MEDICARE, SELFPAY ==
--- NOTE | ~2023-07-04 | XR_ITS ---
EXAMINATION: XR CHEST CLINICAL INFORMATION: Fall COMPARISON: None available. TECHNIQUE: Frontal view of the chest was obtained. FINDINGS: Bilateral low lung volumes. Elevation the right hemidiaphragm. Accentuation of the pulmonary vasculature. Bilateral lung apices incompletely evaluated. No pneumothorax. Trachea is midline. Cardiac mediastinal silhouette is not enlarged. No large pleural effusion. Osteopenia with multilevel degenerative changes of the thoracolumbar spine. Soft tissues are unremarkable. XR/XR chest 1V IMPRESSION: 1. Bilateral low lung volumes. 2. Elevation the right hemidiaphragm. 3. Accentuation of the pulmonary vasculature. 4. Bilateral lung apices incompletely evaluated. 5. Osteopenia with multilevel degenerative changes of the thoracolumbar spine.
--- NOTE | ~2023-07-04 | CT_ITS ---
EXAMINATION: CT HEAD WITHOUT CONTRAST CT CERVICAL SPINE WITHOUT CONTRAST CLINICAL INFORMATION: Fall. COMPARISON: Head CT dated 07/15/2021. TECHNIQUE: Contiguous axial imaging was performed from the skullbase to vertex without intravenous administration of contrast. Multidetector helical imaging was performed through the cervical spine. This CT examination was performed using dose optimization techniques as appropriate, variously including the following: *Automated exposure control *Adjustment of mA and/or kV according to patient size (this includes techniques or standardized protocols for targeted exams where dose is matched to indication/reason for exam; i.e. extremities or head) *Use of iterative reconstruction technique DLP: 972 mGy-cm. FINDINGS: HEAD: There is no evidence of acute intracranial hemorrhage or territorial infarction. No abnormal mass effect or midline shift is seen. No extra-axial fluid collections are identified. Moderate to severe diffuse brain parenchymal volume loss noted with concordant ex vacuo dilatation of the ventricles. Mild chronic white matter microangiopathy evident. The osseous structures and soft tissues are normal. The mastoid air cells are well aerated. There is significant mucosal thickening in the maxillary sinuses, right frontal sinus, and in the anterior left ethmoid air cells. CERVICAL SPINE: There is a superior endplate compression fracture deformity suspected at the C7 level. Additional biconcave compression fractures noted at the T1 and T2 levels, though incompletely assessed. Findings are age-indeterminate. No osseous retropulsion visible. There is a mild loss of vertebral body height at the C7 and T1 levels with a moderate loss of vertebral body height anteriorly at the T2 level. Multilevel facet arthropathy noted. Mild anterior subluxations visible at the C4-C5 and C5-C6 levels. There is a hyperlordosis of the cervical spine and a thoracic kyphosis. An enlarged multinodular thyroid gland is partially visualized. The atlantoaxial articulation is normally maintained. The cervical paraspinal soft tissues are normal. Patchy subsegmental atelectatic changes visible in the lung apices. CT/CT cervical spine wo IV con IMPRESSION: 1. No acute intracranial pathology. Moderate to severe diffuse brain parenchymal volume loss and chronic white matter microangiopathy. 2. Severe paranasal sinus disease with subtotal mucosal opacification of the maxillary sinuses and right frontal sinus; query for any acute symptomatology. 3. Significant cervical hyperlordosis and thoracic kyphosis. Perceived age-indeterminate superior endplate compression fracture at C7 and biconcave compression deformities at the T1 and T2 levels, incompletely assessed. Imaging findings reported to Dr. Bernardo at 1:55 PM on 07/04/2023.
[2023-07-04 08:36] VITALS: BP 130/88; BP 167/84; PULSE 78; PULSE 83; RESP 18; TEMP 36.9; O2SAT 94; O2SAT 95; BMI 27.5
--- NOTE | 2023-07-04 08:43 | ECG_ITS ---
Test Reason : FALL Blood Pressure : / mmHG Vent. Rate : 078 BPM Atrial Rate : 078 BPM P-R Int : 186 ms QRS Dur : 092 ms QT Int : 392 ms P-R-T Axes : 076 006 042 degrees QTc Int : 446 ms Sinus rhythm with Premature supraventricular complexes Otherwise normal ECG When compared with ECG of 10-MAR-2013 14:16, Premature supraventricular complexes are now Present Referred By: Sophia Bernardo Electronically Signed By:DONAVON HARMAN MD
--- NOTE | 2023-07-04 08:52 | ED.GENADULT ---
HPI - General Adult General Chief complaint: Fall Stated complaint: UNWIT FALL,FOUND SITTING ON FLOOR,FROM SNF PER EMS Time Seen by Provider: 07/04/23 08:32 Source: patient, family (Daughter), EMS and old records reviewed Mode of arrival: EMS Limitations: physical limitation History of Present Illness HPI narrative: 82-year-old female brought in by ambulance from assisted living for evaluation after was found on the ground, no other available history or information about the patient. Patient is limited historian due to cognitive disorder and dementia. Related Data Previous Rx's Medication Instructions Recorded triamcinolone acetonide 0.5 % 1 appl topical TID PRN rash #30 01/16/23 topical cream grams Allergies Allergy/AdvReac Type Severity Reaction Status Date / Time No Known Allergies Allergy Verified 06/23/23 15:50 Review of Systems Review of Systems: All other systems are reviewed and are negative Constitutional: Reports as per HPI and Reports no additional constitutional complaints Eyes: Reports as per HPI and Reports no additional eye complaints Reports system reviewed and no additional complaints, except as documented Cardiovascular: Reports as per HPI and Reports no additional cardiovascular complaints Respiratory: Reports as per HPI and Reports no additional respiratory complaints Gastrointestinal: Reports as per HPI and Reports no additional gastrointestinal complaints Genitourinary: Reports no additional female genitourinary complaints Musculoskeletal: Reports no additional musculoskeletal complaints Skin/Breast: Reports system reviewed and no additional complaints, except as docu Psychiatric: Reports no additional psychiatric complaints Endocrine: Reports no additional endocrine complaints Hematologic/Lymphatic: Reports no additional hematologic/lymphatic complaints Allergic/Immunologic: Reports no additional allergic/immunologic complaints Reports system reviewed and no additional complaints, except as documented and Reports Abnormal speech present [facility] Past Medical History Medical History Primary osteoarthritis of knees, 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 Memory impairment Overweight (BMI 25.0-29.9) Osteoarthritis of right knee Pure hypercholesterolemia Benign essential hypertension Surgical History No pertinent past surgical history Family History Family History Unknown Family history non-contributory Social History Social History Housing: Assisted Living Facility Alcohol intake: former Patient Tobacco Use Status: Never used Tobacco Smoked in Last 30 Days: No e-Cigarette/Vaping Use: Never Used Second Hand Smoke Exposure: No Use of substances other than those prescribed or required for medical reasons: No Advance Directives: Yes Advance Directives on File: Yes Advance Directives Date on File: 04/05/21 service: No Current occupational status: retired Cognitive needs: No Hearing needs: No Vision needs: No Physical Exam ED Vital Signs: Vital Signs - 24 hr 07/04/23 08:36 Temperature 98.4 F Pulse Rate 78 Respiratory Rate 18 Blood Pressure 167/84 H Pulse Oximetry 94 Oxygen Delivery Method Room Air BMI result Body Mass Index 27.5 Vital signs have been reviewed and appear to be correct. Blood pressure elevated. Heart rate normal. Respiratory rate normal. Temperature normal. Oxygen saturation normal. Appearance: Alert. Oriented No acute distress. Head: Normal external exam. Normocephalic. Atraumatic. No Santa signs noted. No raccoon eyes noted Eyes: PERRLA. EOMI. Conjunctiva and sclera normal. Eyelids normal. ENT: TM's Normal. Pharynx normal. Uvula midline. Moist mucous membranes. No trismus noted. No drooling noted. No muffled voice noted. Neck: Normal inspection. Neck supple. FROM. No adenopathy. Thyroid Normal. No meningeal signs. No neck mass noted. CVS: Normal heart rate and rhythm. Heart sound normal. No murmurs noted. Pulses normal throughout. Respiratory: No respiratory distress. Painless inspiration. Breath sounds normal. No wheezes/rales/rhonchi noted. Chest nontender. No accessory muscle usage noted or decreased air movement noted. Abdomen: Soft and nontender. Bowel sounds normal in all 4 quadrants. No distention noted. No organomegaly noted. No visible injury noted. Back: No CVA tenderness. Full range of motion noted. Skin: Skin warm and dry. Normal skin color. Normal skin turgor. No rashes/lesions/lacerations noted. Extremities: No lower extremity edema. Extremities exhibit normal range of motion. Extremities nontender. Neuro: Oriented. Cranial nerve exam: II-XII are grossly intact No motor deficit. No sensory deficit. Reflexes normal. Course Reevaluation(s) Reevaluation #1: Patient was found sitting on the floor at the assisted living patient is a non historian, labs are unremarkable head/C-spine CT are unremarkable will admit for cardiac monitoring. Time: 13:10 Medical Decision Making Differential Diagnosis Differential Diagnoses: The differential diagnosis associated with the presentation includes (Rhabdomyolysis, electrolyte derangement, ACS, syncope, intracranial bleed, cervical spine injury, UTI.) Admission/Observation Consideration of admission/observation: Escalation of care including admission/observation considered Consult Healthcare Provider Management of the patient was discussed with: Hospitalist (Dr. Woods) Lab Data MDM Lab Attestation statement: I reviewed the patient's lab results. 07/04/23 09:06 07/04/23 09:06 Labs: Lab Results 07/04/23 07/04/23 Range/Units 09:06 11:32 WBC 6.5 (4.8-10.8) X10*3/uL RBC 4.54 (4.20-5.50) X10*6/uL Hgb 12.7 (12.0-16.0) g/dl Hct 38.2 (37.0-47.0) % MCV 84.1 (80.0-98.0) fL MCH 28.0 (27.0-33.0) pg MCHC 33.2 (31.0-35.0) g/dl RDW 14.3 (11.0-16.0) % Plt Count 282 (160-400) X10*3/uL MPV 8.7 L (9.4-12.3) fL Immature Gran % (Auto) 0.5 H (0.0-0.4) % Neut % (Auto) 85.6 H (45-73) % Lymph % (Auto) 8.2 L (20-40) % [place] % (Auto) 5.1 (2-11) % Eos % (Auto) 0.3 (0-4) % Baso % (Auto) 0.3 (0-2) % Lymph # (Auto) 0.5 L (1.2-4.9) X10*3/uL [place] # (Auto) 0.3 (0.1-1.2) X10*3/uL Eos # (Auto) 0.0 (0.0-0.4) X10*3/uL Baso # (Auto) 0.0 (0.0-0.2) X10*3/uL Abs Immat Gran (auto) 0.03 (0.00-0.03) X10*3/uL Absolute Neuts (auto) 5.5 (2.0-8.3) x10*3/uL Absolute Nucleated RBC 0.000 (0.0-0.012) X10*3/uL Nucleated RBC % (auto) 0.0 (0.0-0.2) /100WBC Sodium 140 (135-145) mmol/L Potassium 3.8 (3.3-5.1) mmol/L Chloride 103 (96-108) mmol/L Carbon Dioxide 29 (22-29) mmol/L Anion Gap 12 (12-20) BUN 14 (9-16) mg/dL Creatinine 0.84 (0.5-1.4) mg/dL Estim Creat Clear Calc 49.5 Estimated GFR > 60 Random Glucose 113 (60-115) mg/dL Calcium 10.1 (8.4-10.2) mg/dL Total Bilirubin 0.6 (0.0-1.0) mg/dL Direct Bilirubin 0.2 (0.0-0.5) mg/dL AST 18 (5-31) U/L ALT 13 (0-31) U/L Alkaline Phosphatase 107 (39-117) U/L Total Creatine Kinase 54 (26-140) U/L Troponin I High Sens 7.1 (<3.5-17.0) ng/L B-Natriuretic Peptide 60 (<100) pg/mL Total Protein 8.5 H (6.5-8.0) g/dL Albumin 4.1 (3.5-5.0) g/dL Lipase 22 (8-78) U/L Urine Color Yellow Urine Appearance Clear Urine pH 7.0 (5.0-9.0) Ur Specific [place] 1.020 (1.005-1.025) Urine Protein Trace (Neg-Trace) mg/dL Urine Glucose (UA) Negative (Negative) mg/dL Urine Ketones Trace (Negative) mg/dL Urine Blood Negative (Negative) Urine Nitrite Negative (Negative) Ur Leukocyte Esterase Trace H (Negative) Urine RBC 0-2 (0-2) /HPF Urine WBC 6-10 H (0-5) /HPF Ur Squamous Epith Cells 0-2 (0-2) /HPF Urine Bacteria None Seen (None Seen) Hyaline Casts 0-2 (0-2) /LPF Independent Interpretation I performed an independent interpretation of an: Plain X-Ray (Chest:1. Bilateral low lung volumes. 2. Elevation the right hemidiaphragm. 3. Accentuation of the pulmonary vasculature. 4. Bilateral lung apices incompletely evaluated. 5. Osteopenia with multilevel degenerative changes of the thoracolumbar spine.) and CT Scan (Head/C-spine: No acute intracranial pathology, no cervical spine fracture or subluxation.) Radiology Impression Discussion of test interpretation with radiology: I have reviewed the radiologist's reading. Discharge Plan Discharge Clinical Impression: Syncope Patient Disposition: Admitted As Inpatient Prescriptions: No Action triamcinolone acetonide 0.5 % cream 1 appl topical TID PRN (Reason: rash) Qty: 30 0RF
--- NOTE | 2023-07-04 09:09 | PC.NURSE ---
Family at bedside stating patients furniture was moved yesterday which may have lead to her having increased confusion
[2023-07-04 09:11] LABS: MANUAL DIFF FLAG NO
[2023-07-04 09:14] LABS: Basophils Percent Auto 0.3 % (0-2); Eosinophils Percent Auto 0.3 % (0-4); Hematocrit 38.2 % (37.0-47.0); Hemoglobin 12.7 g/dl (12.0-16.0); Imm Gran Abs Auto 0.03 X10*3/uL (0.00-0.03); Imm Gran Pct Auto 0.5 % (0.0-0.4); Lymphocytes Absolute Auto 0.5 X10*3/uL (1.2-4.9); Lymphocytes Percent Auto 8.2 % (20-40); Mean Corpuscular HGB Conc 33.2 g/dl (31.0-35.0); Mean Corpuscular Volume 84.1 fL (80.0-98.0); Mean Platelet Volume 8.7 fL (9.4-12.3); Monocytes Absolute Auto 0.3 X10*3/uL (0.1-1.2); Monocytes Percent Auto 5.1 % (2-11); Neutrophils Absolute Auto 5.5 x10*3/uL (2.0-8.3); Neutrophils Percent Auto 85.6 % (45-73); Platelet Count 282 X10*3/uL (160-400); Red Blood Count 4.54 X10*6/uL (4.20-5.50); Red Cell Distribution Width 14.3 % (11.0-16.0); White Blood Count 6.5 X10*3/uL (4.8-10.8)
[2023-07-04 09:31] LABS: Alanine Aminotransferase 13 U/L (0-31); Albumin Level 4.1 g/dL (3.5-5.0); Alkaline Phosphatase 107 U/L (39-117); Anion Gap 12 (12-20); Aspartate Amino Transferase 18 U/L (5-31); Bilirubin Direct 0.2 mg/dL (0.0-0.5); Bilirubin Total 0.6 mg/dL (0.0-1.0); Blood Urea Nitrogen 14 mg/dL (9-16); Calcium 10.1 mg/dL (8.4-10.2); Carbon Dioxide 29 mmol/L (22-29); Chloride 103 mmol/L (96-108); Creatinine Clr Calc Pharmacy 49.5; Estimated Glomerular Filt Rate > 60; Glucose Random 113 mg/dL (60-115); Lipase 22 U/L (8-78); Potassium 3.8 mmol/L (3.3-5.1); Sodium 140 mmol/L (135-145); Total Protein 8.5 g/dL (6.5-8.0)
[2023-07-04 09:33] LABS: B Type Natriuretic Peptide 60 pg/mL (<100)
[2023-07-04 09:34] LABS: Troponin-I High Sensitivity 7.1 ng/L (<3.5-17.0)
[2023-07-04 11:41] LABS: Appearance Urine Clear; Color Urine Yellow; Glucose Urine UA Negative (Negative); Leukocyte Esterase Urine Trace (Negative); Nitrite Urine Negative (Negative); UMIC TRIGGER UACC YES; Urine Blood Negative (Negative); Urine Ketones Trace mg/dL (Negative); Urine Protein Trace mg/dL (Neg-Trace)
[2023-07-04 11:49] LABS: Bacteria Urine None Seen (None Seen); Hyaline Casts Urine 0-2 /LPF (0-2); RBC Urine 0-2 /HPF (0-2); Squamous Epithelial Cell Urine 0-2 /HPF (0-2); UACC Culture Trigger YES
--- NOTE | 2023-07-04 14:10 | P.HPHOSP_ITS ---
History of Present Illness Date of Service: 07/04/23 Attending physician on admission: Tasneem Murphy Chief Complaint: Fall at home Pt is an 82-year-old female with a PMH significant for unspecified dementia not on any home medications?who presents to the ED after unwitnessed fall at home. Pt with advanced dementia at baseline and unable to provide accurate HPI, as she does not remember having a fall at home. HPI instead taken from chart and provider review and family who was telephoned. Pt lives at [facility] in memory unit, and was found on the floor earlier this morning. Unclear if fall was mechanical or how long pt was on the floor. Pt herself has no acute medical complaints. Pt's daughter/HCP report she has declined significantly since February of last year and recently been moved into the facility's Memory Care unit. In the ED pt was hypertensive up to 167/84, vitals otherwise WNL. Labs were grossly unremarkable. No leukocytosis. Stable H&H. No electrolyte abnormalities. Hepatic and renal function baseline. CPK WNL at 54. UA negative for UTI. CXR showed bilateral low lung volumes with elevation of right hemidiaphragm and accentuation of pulmonary vasculature. CT of head negative for acute intracranial pathology, but did show moderate to severe diffuse brain parenchymal volume loss and chronic white matter microangiopathy. CT of cervical spine significant cervical hyperlordosis and thoracic kyphosis, and age-indeterminate superior endplate compression fracture at C7. EKG demonstrated sinus rhythm with premature supraventricular complexes, no evidence of significant ST elevations or depressions. Pt will be admitted to the hospital observation for treatment and further evaluation of fall home secondary to possible syncope. Review of Systems 2 Review of Systems: Unable to obtain due to patient's mentation [facility] Medical History Primary osteoarthritis of knees, 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 Memory impairment Overweight (BMI 25.0-29.9) Osteoarthritis of right knee Pure hypercholesterolemia Benign essential hypertension Family History Unknown Family history non-contributory Surgical History No pertinent past surgical history Social History Household Members: Unknown / Unable to assess Housing: Unknown / Unable to assess Alcohol intake: former Patient Tobacco Use Status: Never used Tobacco Smoked in Last 30 Days: No e-Cigarette/Vaping Use: Never Used Second Hand Smoke Exposure: No Use of substances other than those prescribed or required for medical reasons: Unable to respond Currently Displaying Signs/Symptoms of Drug Intoxication Withdrawal: No Advance Directives: Yes Advance Directives on File: Yes Advance Directives Date on File: 04/05/21 Nutrition Risks: No Nutritional Risk Patient : No : No Poor oral hygiene: No service: No Current occupational status: retired Cognitive needs: No Hearing needs: No Vision needs: No Meds Allergies Allergy/AdvReac Type Severity Reaction Status Date / Time No Known Allergies Allergy Verified 06/23/23 15:50 Home Medications Medication Instructions Recorded Confirmed Last Taken Type No Known Home Meds 07/04/23 07/04/23 Unknown History Physical Exam 2 Vital Signs and Narrative: Vital Signs: Last Vital Signs Temp 98.4 F 07/04/23 08:36 Pulse 78 07/04/23 08:36 Resp 18 07/04/23 08:36 BP 167/84 H 07/04/23 08:36 Pulse Ox 94 07/04/23 08:36 O2 Del Method Room Air 07/04/23 08:36 BMI result Body Mass Index 27.5 Constitutional: Alert, pleasantly confused. In no acute distress. Mental Status: Oriented to person only, not to time, place, or situation. Eyes: Pupils are equal, round, and reactive to light. Ear, Nose, and Throat: Oropharynx clear, mucous membranes moist. Ears and nose without deformities. Trachea midline. Respiratory: Clear to auscultation bilaterally. No wheezing, rales, or rhonchi. Cardiovascular: S1, S2 regular. No murmurs, rubs, or gallops. Gastrointestinal: Abdomen soft, non-tender, non-distended. Normal bowel sounds. Neurologic: Cranial nerves II-XII are grossly intact bilaterally. No focal neurological deficits. Moves all extremities spontaneously. Skin: Warm, dry. Musculoskeletal: No cyanosis or clubbing. Extremities: No edema. Psychiatric: Pleasantly confused. Results Labs 07/04/23 09:06 07/04/23 09:06 Labs: Laboratory Results - last 24 hr 07/04/23 07/04/23 09:06 11:32 MCV 84.1 MCH 28.0 MCHC 33.2 RDW 14.3 Plt Count 282 MPV 8.7 L Immature Gran % (Auto) 0.5 H Neut % (Auto) 85.6 H Lymph % (Auto) 8.2 L [place] % (Auto) 5.1 Eos % (Auto) 0.3 Baso % (Auto) 0.3 Lymph # (Auto) 0.5 L [place] # (Auto) 0.3 Eos # (Auto) 0.0 Baso # (Auto) 0.0 Abs Immat Gran (auto) 0.03 Absolute Neuts (auto) 5.5 Absolute Nucleated RBC 0.000 Nucleated RBC % (auto) 0.0 Anion Gap 12 Estim Creat Clear Calc 49.5 Estimated GFR > 60 Random Glucose 113 Calcium 10.1 Total Bilirubin 0.6 Direct Bilirubin 0.2 AST 18 ALT 13 Alkaline Phosphatase 107 Total Creatine Kinase 54 Troponin I High Sens 7.1 B-Natriuretic Peptide 60 Total Protein 8.5 H Albumin 4.1 Lipase 22 Urine Color Yellow Urine Appearance Clear Urine pH 7.0 Ur Specific [place] 1.020 Urine Protein Trace Urine Glucose (UA) Negative Urine Ketones Trace Urine Blood Negative Urine Nitrite Negative Ur Leukocyte Esterase Trace H Urine RBC 0-2 Urine WBC 6-10 H Ur Squamous Epith Cells 0-2 Urine Bacteria None Seen Hyaline Casts 0-2 Imaging Radiologist's Impressions: Impressions Chest X-Ray 07/04/23 09:18 IMPRESSION: 1. Bilateral low lung volumes. 2. Elevation the right hemidiaphragm. 3. Accentuation of the pulmonary vasculature. 4. Bilateral lung apices incompletely evaluated. 5. Osteopenia with multilevel degenerative changes of the thoracolumbar spine. Cervical Spine CT 07/04/23 12:29 IMPRESSION: 1. No acute intracranial pathology. Moderate to severe diffuse brain parenchymal volume loss and chronic white matter microangiopathy. 2. Severe paranasal sinus disease with subtotal mucosal opacification of the maxillary sinuses and right frontal sinus; query for any acute symptomatology. 3. Significant cervical hyperlordosis and thoracic kyphosis. Perceived age-indeterminate superior endplate compression fracture at C7 and biconcave compression deformities at the T1 and T2 levels, incompletely assessed. Imaging findings reported to Dr. Bernardo at 1:55 PM on 07/04/2023. Head CT 07/04/23 12:29 IMPRESSION: 1. No acute intracranial pathology. Moderate to severe diffuse brain parenchymal volume loss and chronic white matter microangiopathy. 2. Severe paranasal sinus disease with subtotal mucosal opacification of the maxillary sinuses and right frontal sinus; query for any acute symptomatology. 3. Significant cervical hyperlordosis and thoracic kyphosis. Perceived age-indeterminate superior endplate compression fracture at C7 and biconcave compression deformities at the T1 and T2 levels, incompletely assessed. Imaging findings reported to Dr. Bernardo at 1:55 PM on 07/04/2023. Assessment and Plan (1) Fall at home: Status: Acute Plan Pt is an 82-year-old female with a PMH significant for unspecified dementia not on any home medications?who presents to the ED after unwitnessed fall at home. Pt will be admitted to the hospital under observation for treatment and further evaluation of fall home secondary to possible syncope. Question of syncopal episode Patient found on the floor at assisted living facility with an unknown downtime Etiology unclear: Mechanical fall versus syncopal episode Patient with advanced dementia at baseline, unable to provide HPI as does not remember incident Vitals stable at time of presentation, no anemia or electrolyte abnormalities, head CT negative, random glucose 113 No clear infectious source: No fever, leukocytosis, CXR negative, UA negative Will give 1L IVF Will check orthostatics Monitor on telemetry PT consult Unspecified dementia Pt's daughter reports she appears at baseline Not on any home meds Has neurology appointment with new provider on 07/13/2023 Full Code Attending:?Dr. Murphy DVT Prophylaxis: Lovenox Patient will be admitted to the hospital under observation for treatment further evaluation of fall at home possibly secondary to syncopal episode. Quality Stroke Does the patient have a stroke diagnosis?: No VTE Prior VTE?: No VTE Risk Level:: Medical - moderate - high VTE Device Contraindication: Treatment Not Indicated VTE Drug Contraindication: N/A - Med Ordered
--- NOTE | 2023-07-04 14:33 | PHA.MEDREC ---
Pharmacy Consult ? Medication Reconciliation Pharmacy has completed the medication reconciliation. Spoke to [facility] Lakeisha. Per Lakeisha, patient does not take any medications.
[2023-07-04] MEDS: Lactated Ringers 1,000 ML 100 ML IVCONT (15:16)
[2023-07-04 15:54] VITALS: BP 154/74; PULSE 85; RESP 18; TEMP 37.1; O2SAT 96
[2023-07-04] MEDS: Enoxaparin Sodium 40 MG/0.4 ML SYRINGE SUBCUT (16:22)
[2023-07-04 18:46] VITALS: BP 137/67; PULSE 78; RESP 18; TEMP 37.1; O2SAT 98
[2023-07-04 20:00] VITALS: BP 104/70; PULSE 86; RESP 16; TEMP 37.4; O2SAT 93
[2023-07-04] MEDS: 0.9 % Sodium Chloride Flush 3 ML SYRINGE IVFLUSH (20:52)
[2023-07-04 23:44] VITALS: BP 126/62; PULSE 68; RESP 16; TEMP 36.8; O2SAT 94
[2023-07-05] VITALS (9 sets, daily range): BP systolic 135–173; BP diastolic 59–85; PULSE 73–89; RESP 16–20; TEMP 36.7–37.6; O2SAT 92–96
[2023-07-05] MEDS: 0.9 % Sodium Chloride Flush 3 ML SYRINGE IVFLUSH ×5 (07:40→23:59)
--- NOTE | 2023-07-05 13:45 | P.PNIM_ITS ---
Subjective Subjective Date of Service: 07/05/23 Interval History: fall Review of Systems As per daughter patient mental status is at baseline, she lives in assisted living in management unit. no new c/o Physical Exam 2 Vital Signs: Vital Signs: Last Vital Signs Temp 98.4 F 07/05/23 10:50 Pulse 78 07/05/23 10:50 Resp 18 07/05/23 10:50 BP 135/59 L 07/05/23 10:50 Pulse Ox 94 07/05/23 10:50 O2 Del Method Room Air 07/05/23 10:50 BMI result Body Mass Index 27.5 Appearance: Alert,awake near baseline.? cvs: rrr, [id number]. res: clear to auscultation ,no rhonchii or wheezing abd: no rebound or guarding ,nt, bs present. ext pulses present , no cyanosis . neuro: moves all extermities . Objective Data Active Medications Acetaminophen (Acetaminophen 325 Mg Tablet) 650 mg PO Q6H PRN PRN Reason: Pain, Mild (Pain Scale 1-3) Benzonatate (Benzonatate 100 Mg Capsule) 100 mg PO TID PRN PRN Reason: Cough Docusate Sodium (Docusate Sodium 100 Mg Capsule) 100 mg PO DAILY PRN PRN Reason: Constipation Enoxaparin Sodium (Enoxaparin Sodium 40 Mg/0.4 Ml Syringe) 40 mg SUBCUT Q24H [facility] Last Admin: 07/04/23 16:22 Dose: 40 mg Documented By: MIRTHA Melatonin (Melatonin 3 Mg Tablet) 6 mg PO BEDTIME PRN PRN Reason: Insomnia Ondansetron HCl (Ondansetron Hcl 4 Mg/2 Ml Vial) 4 mg IVPUSH Q8H PRN PRN Reason: Nausea and Vomiting Sodium Chloride (0.9 % Sodium Chloride Flush 3 Ml Syringe) [facility] Last Admin: 07/05/23 07:40 Dose: 3 ml Documented By: OSMIN Sodium Chloride (0.9 % Sodium Chloride Flush 3 Ml Syringe) [facility] Last Admin: 07/05/23 07:40 Dose: 3 ml Documented By: OSMIN Labs 07/04/23 09:06 07/04/23 09:06 Microbiology Microbiology Results: Microbiology 07/04/23 Unknown Urine Culture - Final Urine clean catch - Urine irwin top Assessment and Plan (1) Fall at home: Status: Acute Plan 82-year-old female with a PMH significant for unspecified dementia not on any home medications?who presents to the ED after unwitnessed fall at home. Pt will be admitted to the hospital under observation for treatment and further evaluation of fall home secondary to possible syncope. Question of syncopal episode Patient found on the floor at assisted living facility with an unknown downtime Etiology unclear: Mechanical fall versus syncopal episode advanced dementia at baseline, unable to provide HPI as does not remember incident Vitals stable at time of presentation, no anemia or electrolyte abnormalities, head CT negative, random glucose 113 No clear infectious source: No fever, leukocytosis, CXR negative, UA negative plan: orthostatics negative Monitor on telemetry PT consult Unspecified dementia Pt's daughter reports she appears at baseline Not on any home meds Has neurology appointment with new provider on 07/13/2023 Full Code DVT Prophylaxis: Lovenox ongoing need for stay: Pt eval and dispo. Quality Stroke Does the patient have a stroke diagnosis?: No VTE Prior VTE?: No VTE Risk Level:: Medical - moderate - high VTE Device Contraindication: Treatment Not Indicated VTE Drug Contraindication: N/A - Med Ordered
--- NOTE | 2023-07-05 14:11 | MHC.CM.PN ---
CM MET WITH PTS DAUGHTER/HCP, NICA, AT BEDSIDE SHE REPORTS THE PT RESIDES AT [facility] WHERE THEY ASSIST HER WITH ALL CARE AT BASELINE, PT DOES NOT REQUIRE AND ASSISTIVE DEVICES, BUT HAS BEEN USING A WALKER THE LAST FEW DAYS NICA PROVIDED A COPY OF PTS HCP, NOW IN [facility] AND CHART PCP: BYRON GAMEZ DELIVERED DCP: RETURN TO GROUP HOME WITH [facility] IS THE STATED PREFERRED AGENCY DAUGHTER TO TRANSPORT
[2023-07-05] MEDS: Enoxaparin Sodium 40 MG/0.4 ML SYRINGE SUBCUT (15:45)
[2023-07-06] MEDS: 0.9 % Sodium Chloride Flush 3 ML SYRINGE IVFLUSH ×2 (00:01→07:17)
[2023-07-06 04:00] VITALS: BP 158/79; PULSE 77; RESP 16; TEMP 36.4; O2SAT 96
[2023-07-06 07:10] VITALS: BP 145/81; PULSE 57; RESP 17; TEMP 37.1; O2SAT 93
[2023-07-06 10:48] VITALS: BP 145/81; PULSE 57; O2SAT 93
[2023-07-06 11:15] VITALS: BP 154/72; PULSE 76; RESP 20; TEMP 36.9; O2SAT 95
--- NOTE | 2023-07-06 14:21 | HO.PM.IMPN ---
Subjective Subjective Date of Service: 07/06/23 Physical Exam Vital Signs: Vital Signs: Last Vital Signs Temp 98.4 F 07/06/23 11:15 Pulse 76 07/06/23 11:15 Resp 20 07/06/23 11:15 BP 154/72 H 07/06/23 11:15 Pulse Ox 95 07/06/23 11:15 O2 Del Method Room Air 07/06/23 11:15 BMI result Body Mass Index 27.5 Objective Data Active Medications Acetaminophen (Acetaminophen 325 Mg Tablet) 650 mg PO Q6H PRN PRN Reason: Pain, Mild (Pain Scale 1-3) Benzonatate (Benzonatate 100 Mg Capsule) 100 mg PO TID PRN PRN Reason: Cough Docusate Sodium (Docusate Sodium 100 Mg Capsule) 100 mg PO DAILY PRN PRN Reason: Constipation Enoxaparin Sodium (Enoxaparin Sodium 40 Mg/0.4 Ml Syringe) 40 mg SUBCUT Q24H [facility] Last Admin: 07/05/23 15:45 Dose: 40 mg Documented By: OSMIN Melatonin (Melatonin 3 Mg Tablet) 6 mg PO BEDTIME PRN PRN Reason: Insomnia Ondansetron HCl (Ondansetron Hcl 4 Mg/2 Ml Vial) 4 mg IVPUSH Q8H PRN PRN Reason: Nausea and Vomiting Sodium Chloride (0.9 % Sodium Chloride Flush 3 Ml Syringe) 3 ml IVFLUSH [facility] Last Admin: 07/06/23 07:17 Dose: 3 ml Documented By: SNEHA Sodium Chloride (0.9 % Sodium Chloride Flush 3 Ml Syringe) 3 ml IVFLUSH [facility] Last Admin: 07/06/23 07:18 Dose: Not Given Documented By: SNEHA Non-Admin Reason: Duplicate Order Labs 07/04/23 09:06 07/04/23 09:06 Microbiology Microbiology Results: Microbiology 07/04/23 Unknown Urine Culture - Final Urine clean catch - Urine irwin top Quality Stroke Does the patient have a stroke diagnosis?: No VTE Prior VTE?: No VTE Risk Level:: Medical - moderate - high VTE Device Contraindication: Treatment Not Indicated VTE Drug Contraindication: N/A - Med Ordered
--- NOTE | 2023-07-06 14:51 | P.DS_ITS ---
DS: Providers Provider Date of Service: 07/06/23 Date of admission: 07/04/23 14:58 Date of discharge: 07/06/23 Primary care physician: Diaz Flores MD Attending physician on discharge: Tasneem Murphy Discharging clinician: Tasneem Murphy DS: Diagnosis Discharge Diagnosis (1) Fall at home: Status: Acute DS: Summary Hospital Course Hospital Course: 82-year-old female with a PMH significant for unspecified dementia not on any home medications?who presents to the ED after unwitnessed fall at home. Pt with advanced dementia at baseline and unable to provide accurate HPI, as she does not remember having a fall at home. HPI instead taken from chart and provider review and family who was telephoned. Pt lives at [facility] in [facility], and was found on the floor earlier this morning. Unclear if fall was mechanical or how long pt was on the floor. Pt herself has no acute medical complaints. Pt's daughter/HCP report she has declined significantly since February of last year and recently been moved into the facility's Memory Care unit. In the ED pt was hypertensive up to 167/84, vitals otherwise WNL. Labs were grossly unremarkable. No leukocytosis. Stable H&H. No electrolyte abnormalities. Hepatic and renal function baseline. CPK WNL at 54. UA negative for UTI. CXR showed bilateral low lung volumes with elevation of right hemidiaphragm and accentuation of pulmonary vasculature. CT of head negative for acute intracranial pathology, but did show moderate to severe diffuse brain parenchymal volume loss and chronic white matter microangiopathy. CT of cervical spine significant cervical hyperlordosis and thoracic kyphosis, and age-indeterminate superior endplate compression fracture at C7. EKG demonstrated sinus rhythm with premature supraventricular complexes, no evidence of significant ST elevations or depressions. Pt will be admitted to the hospital observation for treatment and further evaluation of fall home secondary to possible syncope. Hospital course: Patient was brought to the hospital for possible mechanical fall versus question of syncope: Patient was monitor on tele seems fine, orthostatic negative, no new episode of syncope . Spoke to her daughter patient seems to be here her baseline, seen by PT recommended return to the assisted living with 24hr care. Spoke to patient daughter in detail -currently not interested in workup,advised to considers workup for syncope outpatient.hence plan discharge. Please consider outpatient follow-up with PCP and further workup outpatient. plan: advised to considers workup for syncope outpatient. Above management patient daughter in detail length she understand and in agreement with the above plan, time spent 50 minute. Time Attestation Discharge coordination time: Greater than 30 minutes Quality: Safe Use of Opioids Does Pt have an Active Cancer Diagnosis on the Problem List?: No Quality: Stroke Does the patient have a stroke diagnosis?: No Physical Exam Vital Signs: Vital Signs: Last Vital Signs Temp 98.4 F 07/06/23 11:15 Pulse 76 07/06/23 11:15 Resp 20 07/06/23 11:15 BP 154/72 H 07/06/23 11:15 Pulse Ox 95 07/06/23 11:15 O2 Del Method Room Air 07/06/23 11:15 BMI result Body Mass Index 27.5 Appearance: Alert,awake x1 ,at baseline per family.? cvs: rrr, [id number]. res: clear to auscultation ,no rhonchii or wheezing abd: no rebound or guarding ,nt, bs present. ext pulses present , no cyanosis . neuro: moves all extermities . DS: Data Imaging Chest x-ray: Radiologist's impression: ITS Impressions Chest X-Ray 07/04/23 09:18 IMPRESSION: 1. Bilateral low lung volumes. 2. Elevation the right hemidiaphragm. 3. Accentuation of the pulmonary vasculature. 4. Bilateral lung apices incompletely evaluated. 5. Osteopenia with multilevel degenerative changes of the thoracolumbar spine. Cervical Spine CT 07/04/23 12:29 IMPRESSION: 1. No acute intracranial pathology. Moderate to severe diffuse brain parenchymal volume loss and chronic white matter microangiopathy. 2. Severe paranasal sinus disease with subtotal mucosal opacification of the maxillary sinuses and right frontal sinus; query for any acute symptomatology. 3. Significant cervical hyperlordosis and thoracic kyphosis. Perceived age-indeterminate superior endplate compression fracture at C7 and biconcave compression deformities at the T1 and T2 levels, incompletely assessed. Imaging findings reported to Dr. Bernardo at 1:55 PM on 07/04/2023. Head CT 07/04/23 12:29 IMPRESSION: 1. No acute intracranial pathology. Moderate to severe diffuse brain parenchymal volume loss and chronic white matter microangiopathy. 2. Severe paranasal sinus disease with subtotal mucosal opacification of the maxillary sinuses and right frontal sinus; query for any acute symptomatology. 3. Significant cervical hyperlordosis and thoracic kyphosis. Perceived age-indeterminate superior endplate compression fracture at C7 and biconcave compression deformities at the T1 and T2 levels, incompletely assessed. Imaging findings reported to Dr. Bernardo at 1:55 PM on 07/04/2023. Discharge Plan Discharge Anticipated Discharge Date/Time: 07/06/23 14:50 Patient Disposition: Home, Self-Care Discharge Diagnosis: fall ,syncope Referrals: Diaz Flores MD [Primary Care Provider] - 1 Week Discharge Medications: No Action No Known Home Meds Discharge Orders: Discharge Order (Routine); Ordered 07/06/23 Ordered By: Tasneem Murphy Diet: Advance to usual diet Activity on Discharge: As tolerated Stand Alone Forms: Patient Portal Discharge page Care Plan Goals: Patient was brought to the hospital for possible mechanical fall versus question of syncope: Patient was monitor on tele seems fine, orthostatic negative, no new episode of syncope . Spoke to her daughter patient seems to be here her baseline, seen by PT rec ommended return to the assisted living with 24hr care. Spoke to patient daughter in detail -currently not interested in workup,advised to considers workup for syncope outpatient.hence plan discharge. Please consider outpatient follow-up with PCP and further workup outpatient. Health Concerns: As above. Plan of Treatment: As above. Assessment: As above.
--- NOTE | 2023-07-06 14:58 | MHC.CM.PN ---
Pt will return to [facility], memory care via family transport.
== END 2023-07-06 15:55 | disposition home or self-care (01) | DRG 312 ==
LOC: HO.ED 13:19 → HO.EDOVER 15:55 → HO.IMC 17:44
PROVIDERS: Admitting Provider Student in an Organized Health Care Education/Training Program; Emergency Provider Emergency Medicine; PCP Internal Medicine; Visit Provider Internal Medicine
DX: R55 Syncope and collapse (principal); F03.90 Unspecified dementia, unspecified severity, without behavioral disturbance, psychotic disturbance, mood disturbance, and anxiety
CPT/HCPCS: 36415; 70450; 71045; 72125; 80048; 80076; 81001; 82550; 83690; 83880; 84484; 85025; 87086; 93005; 97161; 99222; 99285; J1650; J7120; Q9957

== ENCOUNTER → 2023-07-04 08:43 | Outpatient (BNV) | payer MEDICARE, SELFPAY | PROVIDERS: Admitting Provider Student in an Organized Health Care Education/Training Program; Emergency Provider Emergency Medicine; PCP Internal Medicine; Visit Provider Internal Medicine Cardiovascular Disease | DX: I49.3 Ventricular premature depolarization (principal) | CPT/HCPCS: 93010 ==

== ENCOUNTER → 2023-07-04 14:58 | Outpatient (BNV) | payer MEDICARE, SELFPAY | PROVIDERS: Admitting Provider Student in an Organized Health Care Education/Training Program; Emergency Provider Emergency Medicine; PCP Internal Medicine; Visit Provider Student in an Organized Health Care Education/Training Program | DX: R42 Dizziness and giddiness (principal); W19.XXXA Unspecified fall, initial encounter; F03.90 Unspecified dementia, unspecified severity, without behavioral disturbance, psychotic disturbance, mood disturbance, and anxiety; Y92.009 Unspecified place in unspecified non-institutional (private) residence as the place of occurrence of the external cause | CPT/HCPCS: 99222; 99231; 99238 ==

== ENCOUNTER 2023-07-13 12:49 | Outpatient (AMB) | payer MEDICARE, SELFPAY ==
--- NOTE | 2023-07-13 12:51 | MHC.OFFVIS ---
Intake Vital Signs 07/13/23 12:57 Height 5 ft 1 in Weight 139 lb BMI 26.3 BP 152/88 H Blood Pressure Location Rt brachial Position Sitting Respiration 17 Pulse 80 Pulse Source Pulse Oximeter Pulse Oximetry (%) 98 Oxygen Delivery Method Room Air Intake Visit Reasons: [employer]: Other S&S involving cognitive functions Intake Note: Pt presents for new pt evaluation for fall and unspecified dementia. Document Photographer Required: No Allergies No Known Allergies Allergy (Verified 07/13/23 12:56) HPI HPI Comments History of Present Illness Details 82y/o female comes for further management of dementia. SHe is accompanied by her son who helps with history . she resides in an Assisted Living facility in a Memory Care unit. In the past 3 months she cox shad 3 falls. The first fall was in the bathroom floor was wet and she slipped.The second fall was when she slipped down from the sofa and sat down . she was [place]. The third fall was in the Assisted Living facility - she was found on the floor . she was hospitalized at [facility]- CT brain was unremarkable, compression fracture C7 T1 T2 - age indeterminate. she has been having progressive cognitive difficulty for pats 2 years. she was living alone prior to that but slowly had difficulty managing.she gets confused with her birthday , her family members etc. she needs help with all her activities of daily living.she is also incontinent. she can be argumentative at times when she was living alone she thought there were other people in the house. she can follow instructions sometimes. [facility] Medical History (Updated 07/13/23 @ 14:15 by Danae Langford MD) Alzheimer's dementia Primary osteoarthritis of knees, 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 Memory impairment Overweight (BMI 25.0-29.9) Osteoarthritis of right knee Pure hypercholesterolemia Benign essential hypertension Surgical History No pertinent past surgical history Family History Unknown Family history non-contributory Social History Household Members: Unknown / Unable to assess Housing: Unknown / Unable to assess Alcohol intake: former Patient Tobacco Use Status: Never used Tobacco e-Cigarette/Vaping Use: Never Used Second Hand Smoke Exposure: No Advance Directives Date on File: 04/05/21 service: No Current occupational status: retired Cognitive needs: No Hearing needs: No Vision needs: No Review of Systems Neuro Reports confusion Psych Reports confusion Physical Exam Vital Signs: Last Vital Signs Pulse 80 07/13/23 12:57 Resp 17 07/13/23 12:57 BP 152/88 H 07/13/23 12:57 Pulse Ox 98 07/13/23 12:57 Oxygen Delivery Method Room Air 07/13/23 12:57 BMI result Body Mass Index 26.3 Const General: cooperative, comfortable and confusion Nutritional Appearance: average body habitus Orientation/consciousness: confusion Eyes Pupils: Equal, round and reactive pupils present Neuro Other: Patient was disoriented and could not follow commands. MMSE -0 Kyphosis Tight neck muscles gait mildly unstable General: moves all extremities, no focal motor deficits and confusion Cranial nerves: Yes Equal, round and reactive pupils present, Yes Nystagmus not present, Yes Normal facial strength present and Yes Midline tongue present Cognition (Neuro): abnormal cognition Gait exam (Neuro): Antalgic gait present Motor exam (neuro): Normal motor muscle tone present throughout Deep tendon reflexes (DTR's): Right triceps reflex intensity grade: 2+, Left triceps reflex intensity grade: 2+, Rt Biceps (C5, C6): 2+, Left biceps reflex intensity grade: 2+, Right brachioradialis reflex intensity grade: 2+, Left brachioradialis reflex intensity grade: 2+, Right patellar reflex intensity grade: 2+ and Left patellar reflex intensity grade: 2+ Assessment & Plan Assessment & Plan (1) Alzheimer's dementia: Comment: Advanced Code(s): G30.9 - Alzheimer's disease, unspecified; F02.80 - Dementia in other diseases classified elsewhere, unspecified severity, without behavioral disturbance, psychotic disturbance, mood disturbance, and anxiety Plan Reviewed her CT scan reports she has advanced dementia and may not respond to any medications I suggestes to continue supportive care. The patients son agrees with the above and will call if needed. Coding Level of Care Code New Pt Level 4 (92106) Diagnoses Alzheimer's dementia G30.9; F02.80
[2023-07-13 12:57] VITALS: BP 152/88; PULSE 80; RESP 17; O2SAT 98; BMI 26.3
== END 2023-07-13 13:27 | disposition home or self-care (01) ==
PROVIDERS: PCP Internal Medicine; Visit Provider Psychiatry & Neurology Neurology
DX: G30.9 Alzheimer's disease, unspecified (principal); F02.80 Dementia in other diseases classified elsewhere, unspecified severity, without behavioral disturbance, psychotic disturbance, mood disturbance, and anxiety
CPT/HCPCS: 99204; 99214

== ENCOUNTER → 2023-07-13 12:49 | Outpatient (BNVA) | payer MEDICARE, SELFPAY | PROVIDERS: Visit Provider Psychiatry & Neurology Neurology | DX: G30.9 Alzheimer's disease, unspecified (principal); F02.80 Dementia in other diseases classified elsewhere, unspecified severity, without behavioral disturbance, psychotic disturbance, mood disturbance, and anxiety | CPT/HCPCS: 99202 ==